=== PATIENT | male | born 1955 | race Caucasian/White ===

== ENCOUNTER 2018-08-12 11:10 | Day surgery (SDC) | payer BC ==
[2018-08-12] MEDS ORDERED: PROPOFOL 10 MG/ML VIAL IV ONE (11:11)
[2018-08-12] MEDS ORDERED: LIDOCAINE 2% MDV (20MG/ML) 20ML VIAL IV ONE (11:11)
--- NOTE | 2018-08-13 10:20 | Operative Note ---
DATE OF SURGERY: 08/12/18 OPERATION: COLONOSCOPY with cold forceps polypectomy x2. PREOPERATIVE DIAGNOSIS: Colon cancer screening, initial exam, average risk. POSTOPERATIVE DIAGNOSIS: Colon polyps. PREPARATION QUALITY: Good. ESTIMATED BLOOD LOSS: Minimum. SPECIMENS: Transverse colon polyp and rectal polyp. COMPLICATIONS: None apparent. PROCEDURE: After informed consent was obtained from the patient, he was placed in the left lateral decubitus position in the endoscopy suite, sedated and monitored by the department of anesthesia. Digital rectal examination was unremarkable. A well-lubricated IMO672 colonoscope was inserted into the rectum and advanced to the cecum. The cecum was noted by the ileocecal valve and appendiceal orifice and was unremarkable. The ascending colon was unremarkable as well. No polyps were seen in either the cecum or the ascending colon. In the transverse colon, there was a diminutive polyp removed with a cold forceps. Minimal bleeding was noted. The remainder of the transverse colon, descending colon, and sigmoid colon were unrevealing. The rectum did reveal a 3-4 mm polyp removed with a cold forceps. Minimal bleeding was noted. J-turn views of the anorectum were unremarkable. The endoscope was straightened, the rectal ampulla deflated, and the endoscope was removed. RECOMMENDATIONS: I would suggest the patient resume his medications and diet. He will require repeat exam in 5-10 years pending tissue histology. As always, thank you for allowing me to participate in the healthcare of your patients. CC: Herbert SANDOVAL
== END 2018-08-12 12:55 | disposition home or self-care (01) ==
LOC: HOP 11:10
PROVIDERS: ATTEND Internal Medicine Gastroenterology
DX: Z12.11 Encounter for screening for malignant neoplasm of colon (principal); D12.3 Benign neoplasm of transverse colon; K62.1 Rectal polyp